=== PATIENT | female | born 1990 ===

== ENCOUNTER 2020-12-17 19:11 | Emergency (ER) | payer BC ==
[~2020-12-17] VITALS: Ht 165.1 cm; Wt 54.5 kg
[2020-12-17 20:33] LABS: BASO # 0.1 (0.0-0.2); BASO % 0.9 % (0.0-2.0); EOS # 0.2 (0.0-0.7); EOS % 2.5 % (0-4.0); GRAN # 5.8 (1.4-6.5); GRAN % 64.4 % (42.2-75.2); HEMATOCRIT 38.2 % (37.0-47.0); HEMOGLOBIN 12.4 g/dl (12.5-16.0); LYMPH # 2.3 (1.2-3.4); LYMPH % 25.1 % (20.0-51.0); MEAN CELL VOLUME 89 fl (80.0-100.0); MEAN CORPUSCULAR HEMOGLOBIN 29 pg (27.0-31.0); MEAN CORPUSCULAR HGB CONC 33 g/dl (33.0-37.0); MEAN PLATELET VOLUME 10.6 fl (7.4-10.4); MONO # 0.6 (0.1-0.6); MONO % 6.8 % (1.7-9.3); PLATELET COUNT 290 K/mm3 (130-400); RED BLOOD COUNT 4.31 M/mm3 (4.10-5.30); REDCELL DISTRIBUTION WIDTH-CV 14.6 % (11.5-14.5)
[2020-12-17 20:45] LABS: ALBUMIN 4.6 gm/dL (3.5-5.0); BILIRUBIN,TOTAL 0.2 mg/dL (0.0-1.0); CALCIUM 9.2 mg/dL (8.4-10.2); CREATININE, serum 0.54 (0.52-1.25); POTASSIUM 3.8 mmol/L (3.4-5.0); TOTAL PROTEIN 7.8 gm/dL (6.4-8.2)
[2020-12-18 01:18] VITALS: BP 115/79; PULSE 80; TEMP 98.5
== END 2020-12-18 01:18 | disposition home or self-care (01) ==
LOC: COL.ER 19:11
PROVIDERS: Emergency Medicine
DX: O20.0 Threatened abortion (principal); Z3A.00 Weeks of gestation of pregnancy not specified; Z90.49 Acquired absence of other specified parts of digestive tract

== ENCOUNTER 2021-05-06 10:16 | Outpatient (CLI) | payer BC ==
[~2021-05-06] VITALS: Ht 165.1 cm; Wt 54.5 kg
[2021-05-06] VITALS (9 sets, daily range): BP systolic 103–119; BP diastolic 59–81; PULSE 56–99; TEMP 97.5
[2021-05-06 11:43] LABS: BASO # 0.1 K/mm3 (0.0-0.2); BASO % 0.5 % (0.0-2.0); EOS # 0.2 K/mm3 (0.0-0.7); EOS % 2.4 % (0.0-4.0); GRAN % 71.8 % (42.2-75.2); HEMOGLOBIN 10.7 g/dl (12.5-16.0); LYMPH # 1.8 K/mm3 (1.2-3.4); LYMPH % 18.1 % (20.0-51.0); MEAN CELL VOLUME 85 fl (80.0-100.0); MEAN CORPUSCULAR HEMOGLOBIN 29 pg (27-31); MEAN CORPUSCULAR HGB CONC 34 g/dl (33.0-37.0); MEAN PLATELET VOLUME 10.6 fl (7.4-10.4); MONO # 0.7 K/mm3 (0.1-0.6); PLATELET COUNT 258 K/mm3 (130-400); RED BLOOD COUNT 3.75 M/mm3 (4.10-5.30); REDCELL DISTRIBUTION WIDTH-CV 14.3 % (11.5-14.5)
[2021-05-06 11:54] LABS: HEMATOCRIT 31.8 % (37.0-47.0)
[2021-05-06 12:09] LABS: ALBUMIN 3.9 gm/dL (3.5-5.0); BILIRUBIN,TOTAL 0.6 mg/dL (0.2-1.2); CALCIUM 9.2 mg/dL (8.4-10.2); CREATININE, serum 0.67 mg/dL (0.57-1.11); POTASSIUM 3.4 mmol/L (3.5-4.5); TOTAL PROTEIN 6.4 gm/dL (6.2-8.1)
--- NOTE | 2021-05-06 20:00 | NUR ---
Pt able to eat toast and jello without nausea. Pt ambulatory to bathroom, standby assist. Ambulates without dizziness or lightheadedness. Pt able to void. Pericare explained and provided. Mesh panties and pads placed. Pt verbalized her understanding. Pt denies needing anything for pain and ready to discharge home with spouse. 2024: Discharge instructions given to pt and spouse who verbalize their understanding. Stressed importance of calling OB office for followup apt. Pt wheeled out and home with spouse by this RN. Denies questions at this time.
== END 2021-05-06 20:25 | disposition home or self-care (01) ==
LOC: COL.ER 10:16 → LDRO 10:16 → EDSTATUS 14:45 → COL.ER 16:30 → LDRO 16:30 → OB 19:48 → LDRO 20:25
PROVIDERS: Nurse Practitioner Primary Care
DX: O03.4 Incomplete spontaneous abortion without complication (principal)
CPT/HCPCS: OP; J1170; J1885; J2270; J2405; J2550; J2704; J3010; J7030

== ENCOUNTER 2022-01-31 06:21 | Emergency (ER) | payer BC ==
[~2022-01-31] VITALS: Ht 165.1 cm; Wt 65.6 kg
[2022-01-31] MEDS ORDERED: ZOFRAN ODT4 MG PO (06:42)
[2022-01-31 06:57] LABS: BASO % 0.4 % (0.0-2.0); EOS # 0.1 K/mm3 (0.0-0.7); EOS % 0.4 % (0.0-4.0); GRAN # 10.1 K/mm3 (1.4-6.5); GRAN % 88.8 % (42.2-75.2); HEMOGLOBIN 10.9 g/dl (12.5-16.0); LYMPH # 0.6 K/mm3 (1.2-3.4); LYMPH % 5.6 % (20.0-51.0); MEAN CELL VOLUME 87 fl (80.0-100.0); MEAN CORPUSCULAR HEMOGLOBIN 29 pg (27-31); MEAN CORPUSCULAR HGB CONC 33 g/dl (33.0-37.0); MEAN PLATELET VOLUME 10.6 fl (7.4-10.4); MONO # 0.4 K/mm3 (0.1-0.6); MONO % 3.7 % (1.7-9.3); PLATELET COUNT 269 K/mm3 (130-400); RED BLOOD COUNT 3.75 M/mm3 (4.10-5.30); REDCELL DISTRIBUTION WIDTH-CV 13.9 % (11.5-14.5)
[2022-01-31 07:04] LABS: HEMATOCRIT 32.6 % (37.0-47.0)
[2022-01-31 07:13] LABS: CREATININE, serum 0.65 mg/dL (0.57-1.11)
[2022-01-31 07:14] LABS: ALBUMIN 3.1 gm/dL (3.5-5.0); BILIRUBIN,TOTAL 0.5 mg/dL (0.2-1.2); CALCIUM 8.6 mg/dL (8.4-10.2); POTASSIUM 3.5 mmol/L (3.5-4.5); TOTAL PROTEIN 6.3 gm/dL (6.2-8.1)
[2022-01-31] MEDS ORDERED: PRENATAL MVI PO (07:31)
[2022-01-31] MEDS ORDERED: PROMETHAZINE12.5 M5 PO (07:31)
[2022-01-31] MEDS ORDERED: DICLEGIS PO (08:06)
[2022-01-31 08:18] VITALS: BP 101/62; PULSE 68; TEMP 97.5
== END 2022-01-31 08:18 | disposition home or self-care (01) ==
LOC: COL.ER 06:21
PROVIDERS: Personal Emergency Response Attendant
DX: O21.9 Vomiting of pregnancy, unspecified (principal); O99.612 Diseases of the digestive system complicating pregnancy, second trimester; R19.7 Diarrhea, unspecified; Z91.040 Latex allergy status; Z28.310 Unvaccinated for COVID-19; Z3A.24 24 weeks gestation of pregnancy
CPT/HCPCS: J2405; J3010; J7030

== ENCOUNTER → 2022-01-31 | Outpatient (CLI) | payer BC ==
[~2022-01-31] VITALS: Ht 165.1 cm; Wt 60.5 kg
[~2022-01-31] MED LIST: DICLEGIS PO; PRENATAL MVI PO; PROMETHAZINE12.5 M5 PO; ZOFRAN ODT4 MG PO
--- NOTE | 2022-01-31 05:35 | NUR ---
G6L2. 23.1. Ambulatory to L[facility] 3 with spouse. Clean gown on. EFM and TOCO explained and applied. Pt states since 2200 last night she has been having stomah pain with N/V/D. Pt states she does not think it is contractions. Pt states she has "a little bit of cramping before I throw up." Pt unable to keep any fluids down. Doppler, VS and assessment completed. 0600: called and updated on pts status. See physican notification. 0605: Discharge education given to pt and spouse. Denies questions. Pt ambulatory down to ER for further evaluation by Jamilah, pharmacy order entry technician.
[2022-01-31 05:45] VITALS: BP 106/66; PULSE 88; TEMP 98.6
== END ==
LOC: LDRO 05:23
DX: O21.2 Late vomiting of pregnancy (principal); O26.892 Other specified pregnancy related conditions, second trimester; Z3A.23 23 weeks gestation of pregnancy